=== PATIENT | female | born 1970 | race Caucasian/White ===

== ENCOUNTER 2022-01-23 16:49 | Observation (INO) ==
[2022-01-23] MEDS ORDERED: 0.9 % Sodium Chloride 1,000 ML IVC ONE (17:02)
[2022-01-23] MEDS ORDERED: Ondansetron 4 MG/2 ML VIAL IVP ONE (17:02)
[2022-01-23] MEDS ORDERED: Iopamidol - 370 500 ML MLS IVP ONE (17:02)
[2022-01-23] MEDS ORDERED: *HR* FentaNYL (PF) 100 MCG/2 ML VIAL IVP ONE (17:05)
[2022-01-23 17:44] LABS: Basophils # 0.1 K/mcL (0.0-0.2); Basophils % 0.7 %; Eosinophils # 0.1 K/mcL (0.0-0.6); Hemoglobin 14.5 g/dL (11.5-15.4); Immature Granulocytes % 0.4 % (0-4); Lymphocytes # 1.5 K/mcL (0.6-4.6); Lymphocytes % 10.8 %; Mean Corpuscular HGB Conc 35.4 g/dL (31.6-35.5); Mean Corpuscular Hemoglobin 32.7 pg (28.0-33.3); Mean Corpuscular Volume 92.6 fL (83.0-100.0); Mean Platelet Volume 9.6 fL (9.4-12.4); Monocytes # 0.5 K/mcL (0.0-1.3); Monocytes % 3.9 %; Neutrophils # 11.2 K/mcL (1.6-8.9); Platelet Count 320 K/mcL (140-400); Red Blood Count 4.43 M/mcL (3.82-4.97); Red Cell Distribution Width 11.9 % (11.5-14.5); Segmented Neutrophils % 83.2 %; White Blood Count 13.5 K/mcL (4.3-11.1)
[2022-01-23 18:03] LABS: Alanine Aminotransferase 13 Units/L (7-52); Albumin 4.6 g/dL (3.5-5.7); Albumin/Globulin Ratio 1.9 (1.1-2.2); Alkaline Phosphatase 77 Units/L (34-104); Aspartate Amino Transferase 18 Units/L (13-39); BUN/Creatinine Ratio 12 (6-26); Bilirubin,Direct 0.1 mg/dL (0.0-0.2); Bilirubin,Indirect 0.6 mg/dL (0.0-1.0); Bilirubin,Total 0.7 mg/dL (0.3-1.0); Blood Urea Nitrogen 10 mg/dL (6-20); Carbon Dioxide 27 mEq/L (23-29); Chloride 100 mEq/L (98-107); Globulin 2.4 g/dL (2.4-3.5); Glucose 119 mg/dL (70-105); Lipase 20 Units/L (11-82); Osmolality,Calculated 288 (280-300); Potassium 3.6 mEq/L (3.5-5.1); Sodium 139 mEq/L (136-145); Troponin I < 0.03 ng/mL (< 0.04)
[2022-01-23 19:53] LABS: Bilirubin,Urine Negative (Negative); Blood,Urine Negative (Negative); Budding Yeast,Urine Few per hpf (None Seen); Clarity,Urine Clear (Clear); Color,Urine Colorless (Yellow); Glucose,Urine (UA) Normal (Normal); Ketones,Urine 40 mg/dL (Negative); Leukocyte Esterase,Urine Negative (Negative); Nitrite,Urine Negative (Negative); PH,Urine 8.5 pH Units (5.0-8.0); Protein,Urine 30 mg/dL (Neg-Trace); Specific Gravity,Urine > 1.030 (1.010-1.025); Squamous Epithelial Cell,Urine Moderate per hpf (None-Few); Urobilinogen,Urine Normal (Normal); WBC,Urine 0-3 per hpf (0-3)
[2022-01-23] MEDS ORDERED: Ondansetron 4 MG/2 ML VIAL IVP PRN (22:49)
[2022-01-23] MEDS ORDERED: Naloxone 0.4 MG/ML INJ IVP PRN (22:49)
[2022-01-23] MEDS ORDERED: Ketorolac 30 MG/ML VIAL IVP PRN (22:58)
[2022-01-23] MEDS: 0.9 % Sodium Chloride 1,000 ML IVC SCH (23:01)
[2022-01-23] MEDS: Acetaminophen IV 500 MG/50 ML BAG IVPB SCH (23:02)
[2022-01-23] MEDS: Nicotine 7 MG PATCH.TD24 TD SCH (23:03)
[2022-01-24 04:24] LABS: Hematocrit 38.6 % (35.3-44.9); Hemoglobin 13.3 g/dL (11.5-15.4); Mean Corpuscular HGB Conc 34.5 g/dL (31.6-35.5); Mean Corpuscular Hemoglobin 32.4 pg (28.0-33.3); Mean Corpuscular Volume 93.9 fL (83.0-100.0); Mean Platelet Volume 9.3 fL (9.4-12.4); Platelet Count 306 K/mcL (140-400); Red Blood Count 4.11 M/mcL (3.82-4.97); White Blood Count 9.4 K/mcL (4.3-11.1)
[2022-01-24 04:31] LABS: Estimated Average Glucose 111 mg/dl; Hemoglobin A1C 5.5 %
[2022-01-24 04:42] LABS: BUN/Creatinine Ratio 15 (6-26); Blood Urea Nitrogen 8 mg/dL (6-20); Calcium 8.9 mg/dL (8.6-10.3); Carbon Dioxide 24 mEq/L (23-29); Chloride 109 mEq/L (98-107); Chol/HDL Ratio 3.6 (0-4.9); Cholesterol 192 mg/dL (< 200); Glucose 98 mg/dL (70-105); HDL Cholesterol 54 mg/dL (40-59); LDL Cholesterol,Calculated 120 mg/dL (< 100); Osmolality,Calculated 290 (280-300); Potassium 3.3 mEq/L (3.5-5.1); Sodium 141 mEq/L (136-145); Triglycerides 89 mg/dL (< 150)
[2022-01-24] MEDS: Famotidine 20 MG/2 ML VIAL IVP SCH ×2 (04:58→19:16)
[2022-01-24] MEDS: Acetaminophen IV 500 MG/50 ML BAG IVPB SCH ×3 (04:58→20:32)
[2022-01-24] MEDS: 0.9 % Sodium Chloride 1,000 ML IVC SCH ×2 (11:22→21:35)
[2022-01-24] MEDS: Nicotine 7 MG PATCH.TD24 TD SCH (20:43)
[2022-01-25] VITALS: BP 118/68; PULSE 54; TEMP 97.4; O2SAT 100
[2022-01-25 00:55] LABS: Hematocrit 37.8 % (35.3-44.9); Hemoglobin 12.3 g/dL (11.5-15.4); Mean Corpuscular HGB Conc 32.5 g/dL (31.6-35.5); Mean Corpuscular Hemoglobin 31.8 pg (28.0-33.3); Mean Corpuscular Volume 97.7 fL (83.0-100.0); Platelet Count 273 K/mcL (140-400); Red Blood Count 3.87 M/mcL (3.82-4.97); Red Cell Distribution Width 12.4 % (11.5-14.5); White Blood Count 7.1 K/mcL (4.3-11.1)
[2022-01-25 01:17] LABS: BUN/Creatinine Ratio 13 (6-26); Blood Urea Nitrogen 7 mg/dL (6-20); Calcium 8.7 mg/dL (8.6-10.3); Carbon Dioxide 27 mEq/L (23-29); Chloride 111 mEq/L (98-107); Glucose 76 mg/dL (70-105); Osmolality,Calculated 291 (280-300); Potassium 3.1 mEq/L (3.5-5.1); Sodium 142 mEq/L (136-145)
[2022-01-25] MEDS: Famotidine 20 MG/2 ML VIAL IVP SCH (05:17)
[2022-01-25] MEDS: Acetaminophen IV 500 MG/50 ML BAG IVPB SCH ×2 (05:40→10:10)
[2022-01-25] MEDS: 0.9 % Sodium Chloride 1,000 ML IVC SCH (05:40)
== END 2022-01-25 12:45 | disposition home or self-care (01) ==
LOC: EMEROOARM 16:49 → 3ANU 16:49 → SUATTDRO 19:52 → 3ANU 20:22
PROVIDERS: ADMIT Internal Medicine; ATTEND Internal Medicine